=== PATIENT | female | born 1990 | race Asian ===

== ENCOUNTER 2016-12-18 07:51 | Day surgery (SDC) | payer BC ==
[2016-12-18 08:22] VITALS: BP 117/75; TEMP 98.6; BMI 32.8
--- NOTE | 2016-12-18 11:55 | PRG ---
OB ER ENCOUNTER NOTE DATE OF ENCOUNTER: 12/18/2016 PRIMARY OB: Marj Issa M.D. CHIEF COMPLAINT: Abdominal pain. HISTORY OF PRESENT ILLNESS: The patient is a 26-year-old G1, P0 female with an intrauterine pregnan cy at 39 weeks and 6 days, who is presenting today with abdominal pains that have become more severe this morning. She reports that in clinic, she was 3 cm dilated a couple days ago. The patient den ies any leakage of fluid. She does report she has been having some spotting. The patient denies an y recent illness, fever, fall, headache, chest pain or shortness of breath. She denies any nausea, vomiting or any new rashes. She denies hip or knee problems, urinary urgency or frequency, or tee e in her discharge. PAST MEDICAL HISTORY: Negative. PAST SURGICAL HISTORY: Negative. SOCIAL HISTORY: Denies drug, alcohol or tobacco use. OBSTETRIC HISTORY: This is her first . ALLERGIES: No known drug allergies. MEDICATIONS: vitamins. OB LABS: Blood type is O positive. Antibody screen is negative. HIV nonreactive. RPR nonreactive . Hepatitis B surface antigen nonreactive. Third trimester HIV is nonreactive. Third trimester RP R is nonreactive. She is rubella immune. GBS negative. REVIEW OF SYSTEMS: Per HPI. PHYSICAL EXAMINATION: VITAL SIGNS: Blood pressure is 112/69, heart rate is 70, respiratory rate of 18, satting 96% on angel m air and temperature is 98.6. GENERAL: She appears to be in no acute distress. She does appear to have some minimal distress wit h contractions on occasion. She is alert and oriented, cooperative and pleasant to interact with. HEENT: Head is normocephalic and atraumatic. LUNGS: Clear to auscultation bilaterally. HEART: Regular rate and rhythm. ABDOMEN: Soft, gravid and nontender. EXTREMITIES: Nontender and nonedematous. CERVICAL EXAM: Per nursing staff, she is 4.5 cm dilated, 90% effaced, -2 station. After 2 hours, t he patient remains unchanged. heart tracing performed for threatened labor. Baseline is in t he 130s with moderate long-term variability, positive accelerations, no decelerations. Contractions are about every 10 minutes. ASSESSMENT AND PLAN: The patient is a 26-year-old G1, P0 female with an intrauterine at 3 9 weeks and 6 days, who is in latent labor and has not entered in active phase yet. I have spoken w natasha Issa, her primary OB, who would like to have her come in tomorrow morning given her favora ble cervix for an elective induction of labor per patient's request. Fetus has a category 1 tracing . Plan at this time is to discharge home. She has been given term labor precautions. If she does not return in labor on her own, she will be augmented tomorrow morning. Patient has been counseled to call around 4:00.
== END 2016-12-18 11:15 | disposition home or self-care (01) ==
LOC: L&D/OP 07:51
PROVIDERS: ATTEND Obstetrics & Gynecology
DX: O99.89 Other specified diseases and conditions complicating pregnancy, childbirth and the puerperium (principal); R10.9 Unspecified abdominal pain; Z3A.39 39 weeks gestation of pregnancy; Z79.899 Other long term (current) drug therapy

== ENCOUNTER 2016-12-18 21:59 | Inpatient (IN) | payer BC ==
[~2016-12-18 21:59] MED LIST: Bupivacaine PF 0.5% 30 ML VIAL ONE; Bupivacaine/Epinephrine 0.5% 10 ML VIAL ONE; Lidocaine 2% PF 10 ML AMP (For Epidural Use) ONE
[2016-12-18 22:28] VITALS: BMI 32.8
[2016-12-18] MEDS ORDERED: Fentanyl 4 mcg/Marc 0.1% Cadd 100 ML ONE (22:56)
[2016-12-18] MEDS ORDERED: Ondansetron HCl/PF 4 MG/2 ML Vial IVP PRN (23:01)
[2016-12-18] MEDS ORDERED: Promethazine HCl 25 MG/ML VIAL IM PRN (23:01)
[2016-12-18 23:02] LABS: Hematocrit 40.4 % (36.0-47.0); Mean Platelet Volume 11.3 fL (7.4-10.4); Red Blood Cell (RBC) Count 4.65 mill/uL (4.20-5.40); White Blood Cell (WBC) Count 13.5 thou/uL (4.8-10.8)
[2016-12-18] MEDS ORDERED: Lactated Ringer's 1,000 ML IV PRN (23:02)
[2016-12-18] MEDS ORDERED: Lidocaine 1% (PF) 30 ML VIAL SC PRN (23:15)
[2016-12-18] MEDS ORDERED: Carboprost 250 MCG/ML AMP IM PRN (23:15)
[2016-12-18] MEDS ORDERED: HYDROcodone/Acetaminophen 5/325 mg Tablet PO PRN ×2 (23:15)
[2016-12-18] MEDS ORDERED: Ibuprofen 800 MG TAB PO PRN (23:15)
[2016-12-18] MEDS ORDERED: Diphenoxylate HCl/Atropine Tablet PO PRN ×2 (23:15)
[2016-12-18] MEDS ORDERED: Misoprostol 200 MCG TAB RC PRN (23:15)
[2016-12-18] MEDS ORDERED: LR 500 ML/Oxytocin 10 units 500 ML IV SCH ×2 (23:15)
[2016-12-18] MEDS ORDERED: LR / Pitocin 40 units/1000 ml 40 UNITS/1,000 ML BAG IV SCH (23:15)
[2016-12-19] MEDS ORDERED: Lactated Ringer's 500 ML IV PRN (00:57)
[2016-12-19] MEDS ORDERED: ePHEDrine/0.9% NaCl/PF SYRINGE 50 mg/10 ml SLOW IVP PRN (00:57)
[2016-12-19] MEDS ORDERED: Promethazine HCl 25 MG/ML VIAL IM PRN (00:57)
[2016-12-19] MEDS ORDERED: Hydrocerin (Eucerin) Cream 120 gm Jar TOP PRN (00:57)
[2016-12-19] MEDS ORDERED: Naloxone HCl 0.4 mg/ml Vial IVP PRN ×2 (00:57)
[2016-12-19] MEDS ORDERED: Acetaminophen 325 MG TAB PO PRN (00:57)
[2016-12-19] MEDS ORDERED: Ondansetron HCl/PF 4 MG/2 ML Vial IVP PRN (00:57)
[2016-12-19] MEDS ORDERED: diphenhydrAMINE HCl 50 MG/ML 1 ML VIAL IVP PRN (00:57)
[2016-12-19] MEDS ORDERED: Communication Order-Pharmacy FS SCH (01:00)
[2016-12-19] MEDS ORDERED: Fentanyl 4mcg/Marcaine 0.1% Cassette 100 ML EPIDURAL SCH (01:00)
[2016-12-19] MEDS: Lactated Ringer's 1,000 ML IV SCH ×2 (03:25→14:39)
[2016-12-19] MEDS ORDERED: Bisacodyl 10 MG SUPP PR PRN (06:40)
[2016-12-19] MEDS ORDERED: Benzocaine/Menthol 20-0.5% 60 ML CAN TOP PRN (06:40)
[2016-12-19] MEDS ORDERED: Zolpidem Tartrate 5 MG TAB PO PRN (06:40)
[2016-12-19] MEDS ORDERED: diphenhydrAMINE HCl 25 MG CAP PO PRN (06:40)
[2016-12-19] MEDS ORDERED: Adacel (T-DAP) 0.5 ML VIAL IM ONE (06:40)
[2016-12-19] MEDS ORDERED: Lanolin Ointment 7 GM TUBE TOP PRN (06:40)
[2016-12-19] MEDS ORDERED: Preparation H Ointment 28 GM TUBE PR PRN (06:40)
[2016-12-19] MEDS ORDERED: Milk Of Magnesia 30 ML UDCUP PO PRN (06:40)
[2016-12-19] MEDS ORDERED: traMADol HCl 50 MG TAB PO PRN (06:40)
[2016-12-19] MEDS ORDERED: LR / Pitocin 40 units/1000 ml 1,000 ML IV SCH (06:45)
--- NOTE | 2016-12-19 06:45 | PDOC.OPDEL ---
OB Operative/Delivery Note Delivery Dr/Surgeon: Luis Manuel Pre-Delivery Diagnosis: active labor Procedure/Post Delivery Dx: spontaneous vaginal delivery Weeks gestation: 40 Anesthesia: epidural - Findings A Sex: male Weight: 8 lb 5 oz - 5 min: 8 - 10 min: 9 - Additional Findings/Plan Placenta delivered: spontaneous Repaired Obstetrical Laceration: other Estimated blood loss: 750ml Compilations/Other Findings: uterine atony required 800 mcg rectal cytotec amp methergine bilateral vaginal sulcal lacerations repaired with 2-0 chromic
[2016-12-19] MEDS: Prenatal Vitamin 1 TAB PO SCH (11:33)
[2016-12-19] MEDS: Ferrous Sulfate 325 MG TAB PO SCH ×2 (11:33→16:35)
[2016-12-19] MEDS: Docusate (Surfak) 240 MG CAP PO SCH ×2 (11:33→21:07)
[2016-12-19] MEDS: Ibuprofen 800 MG TAB PO SCH ×2 (14:23→21:07)
[2016-12-20] MEDS: Ibuprofen 800 MG TAB PO SCH ×3 (05:51→21:51)
[2016-12-20 05:52] LABS: Hematocrit 32.4 % (36.0-47.0); Mean Platelet Volume 10.8 fL (7.4-10.4); Red Blood Cell (RBC) Count 3.67 mill/uL (4.20-5.40); White Blood Cell (WBC) Count 19.6 thou/uL (4.8-10.8)
--- NOTE | 2016-12-20 07:02 | PRG ---
DATE OF SERVICE: 12/20/2016 DAY #1 In brief, this is a patient who underwent a vaginal with Dr. Issa yesterday at approximately 0600. SUBJECTIVE: The patient has no new concerns or complaints this morning. She is feeling well. OBJECTIVE: Temperature range for the patient is 98.4 to 98.7, pulse is in the 70s. Blood pressure s ranged from 110/73 to 107/61. On laboratory assessment hematocrit value initially was 40 and is 32.4 . It is important to note that she does have an increasing leukocytosis with the last CBC at 0410 on 12/20/2016 showi ng a white blood cell count of 19.6, which is likely reactive, status post delivery. PHYSICAL EXAMINATION: She is in no acute distress. Uterus is firm and nontender. There is no evid ence of heavy vaginal bleeding on exam. ASSESSMENT: This is a patient who is day #1, now primiparous who is doing well. Reacti ve leukocytosis is noted on the CBC. PLAN: 1. Continue in-house observation and temperature checks. 2. Index of suspicion for metritis is low and she is clinically well. 3. Likely will be able to be discharged home tomorrow. 4. The patient was seen and examined.
[2016-12-20] MEDS: Ferrous Sulfate 325 MG TAB PO SCH ×2 (07:46→16:49)
[2016-12-20] MEDS: Prenatal Vitamin 1 TAB PO SCH (09:11)
[2016-12-20] MEDS: Docusate (Surfak) 240 MG CAP PO SCH ×2 (09:11→21:51)
[2016-12-21] MEDS: Ibuprofen 800 MG TAB PO SCH (06:09)
--- NOTE | 2016-12-21 08:17 | DIS ---
DATE OF ADMISSION: 12/18/2016 DATE OF DISCHARGE: 12/21/2016 ADMITTING DIAGNOSIS: Labor. DISCHARGE DIAGNOSIS: Labor. PROCEDURE: Normal delivery. CONSULTATIONS: None. HOSPITAL COURSE: Patient is a 26-year-old female who presented in active labor at term and subseque ntly had a normal vaginal . She was transferred to for routine care. Today is post day #2. The patient report, she is tolerating p.o., voiding on her own, having decreased loc hia and having good pain control. PHYSICAL EXAMINATION: VITAL SIGNS: Blood pressures 119/69, temperature 98.0, pulse of 88, respiratory rate of 18. GENERAL: She appears to be in no acute distress. She is alert and oriented, and cooperative and pl easant to interact with. Fundus is firm at the umbilicus. EXTREMITIES: Nontender with minimal edema. LABORATORY DATA: Her hemoglobin is 10.5, hematocrit 32.4, platelets of 146,000. DISPOSITION: The patient is being discharged to home on ibuprofen 800 mg to be taken 3 times a day as needed for pain control. FOLLOWUP: She will follow up with Dr. Issa in 4-6 weeks for her visit. DISCHARGE INSTRUCTIONS: She has also been asked to seek medical attention sooner if she experiences fever, increasing pain or bleeding.
[2016-12-21] MEDS: Prenatal Vitamin 1 TAB PO SCH (09:32)
[2016-12-21] MEDS: Docusate (Surfak) 240 MG CAP PO SCH (09:32)
[2016-12-21] MEDS: Ferrous Sulfate 325 MG TAB PO SCH (09:32)
[2016-12-21 10:18] VITALS: BP 123/84; TEMP 99.1
[2016-12-22] MEDS ORDERED: FLU VACC QS2017-18 36 mo. & older 0.5 ML SYRINGE IM ONE (09:00)
== END 2016-12-21 11:35 | disposition home or self-care (01) | DRG 775 ==
LOC: L&D/OP 21:59 → L&D 23:04 → 3SW 12-19 10:11
PROVIDERS: ADMIT Obstetrics & Gynecology; ATTEND Obstetrics & Gynecology
PROC: 10E0XZZ Delivery of Products of Conception, External Approach (ICD-10-PCS; principal; 2016-12-19)
PROC: 0KQM0ZZ Repair Perineum Muscle, Open Approach (ICD-10-PCS; 2016-12-19)
DX: O70.1 Second degree perineal laceration during delivery (principal); Z37.0 Single live birth; O62.2 Other uterine inertia; Z3A.40 40 weeks gestation of pregnancy
CPT/HCPCS: 36415; 85027; 86780; 87340; J2001; J2210; J3490; S0020